=== PATIENT | female | born 1945 | race Caucasian/White ===

== ENCOUNTER 2017-01-20 13:29 | Day surgery (SDC) | payer OTHER ==
[~2017-01-20] VITALS: Ht 167.6 cm; Wt 76.7 kg
[~2017-01-20 13:29] MED LIST: ASPIR 8181 M1 PO; CALCIUM PO; NEXIUM40 MG PO; NORVASC5 MG PO; PRAVACHOL40 MG PO; PROZAC10 MG PO; TENORMIN25 MG PO; ZESTRIL5 MG PO
[2017-01-20] MEDS ORDERED: VITAMIN E400 UNIT PO (13:57)
[2017-01-20] MEDS ORDERED: ASCORBIC ACID500 M3 PO (13:57)
[2017-01-20] MEDS ORDERED: CYANOCOBALAM1000 MCG PO (13:58)
[2017-01-20] MEDS ORDERED: VITAMIN D2000 UNIT PO (13:59)
[2017-01-20] MEDS ORDERED: OMEGA-3 FLAXS1000 MG PO (13:59)
[2017-01-20] MEDS ORDERED: FOLIC ACID0.4 MG PO (14:00)
[2017-01-20] MEDS ORDERED: ICAPS TABLET1 EACH PO (14:00)
[2017-01-20] MEDS ORDERED: DERMACINRX SIL1 EACH TP (14:01)
[2017-01-20] MEDS ORDERED: FLONASE16 G1 BOTH NARES (14:03)
[2017-01-20 14:10] VITALS: BP 179/83
[2017-01-20 17:40] VITALS: BP 165/75
[2017-01-20 18:30] VITALS: BP 136/63
== END 2017-01-20 18:30 | disposition home or self-care (01) ==
LOC: SDC 13:29
DX: H43.12 Vitreous hemorrhage, left eye (principal); H35.042 Retinal micro-aneurysms, unspecified, left eye; I10 Essential (primary) hypertension; K21.9 Gastro-esophageal reflux disease without esophagitis; E78.5 Hyperlipidemia, unspecified; M79.7 Fibromyalgia; I25.10 Atherosclerotic heart disease of native coronary artery without angina pectoris; F41.9 Anxiety disorder, unspecified; Z79.82 Long term (current) use of aspirin
CPT/HCPCS: J0690; J3300